=== PATIENT | female | born 1990 | race Caucasian/White ===

== ENCOUNTER 2020-02-05 14:25 | Outpatient (RCR) | payer BC | END 2020-02-19 | disposition home or self-care (01) | LOC: WCC 14:25 | DX: S06.300S Unspecified focal traumatic brain injury without loss of consciousness, sequela (principal); X58.XXXS Exposure to other specified factors, sequela; Z87.820 Personal history of traumatic brain injury ==

== ENCOUNTER 2020-02-06 10:00 | Outpatient (RCR) | payer SELFPAY | END 2020-02-19 | disposition home or self-care (01) | LOC: WCC 10:00 | DX: S06.300S Unspecified focal traumatic brain injury without loss of consciousness, sequela (principal); X58.XXXS Exposure to other specified factors, sequela; Z87.820 Personal history of traumatic brain injury | CPT/HCPCS: G0277 ×10 ==

== ENCOUNTER 2020-02-24 10:00 | Outpatient (RCR) | payer SELFPAY | END 2020-03-21 | disposition home or self-care (01) | LOC: WCC 10:00 | DX: S06.300S Unspecified focal traumatic brain injury without loss of consciousness, sequela (principal); X58.XXXS Exposure to other specified factors, sequela; G44.321 Chronic post-traumatic headache, intractable | CPT/HCPCS: G0277 ×20 ==